=== PATIENT | male | born 1965 | race Caucasian/White ===

== ENCOUNTER → 2019-10-05 | Outpatient (CLI) | payer BC ==
[~2019-10-05] MED LIST: OMNIPAQUE 350 MG/ML, 100ML BOTTLE ONE
== END | disposition home or self-care (01) ==
LOC: CFH 14:38
PROVIDERS: ATTEND Nurse Practitioner Family
DX: K44.9 Diaphragmatic hernia without obstruction or gangrene (principal); J84.10 Pulmonary fibrosis, unspecified
CPT/HCPCS: 74177; Q9967

== ENCOUNTER 2020-07-19 14:23 | Outpatient (CLI) | payer BC | END 2020-07-19 23:59 | disposition home or self-care (01) | LOC: CFH 14:23 | PROVIDERS: ATTEND Internal Medicine | DX: Z12.2 Encounter for screening for malignant neoplasm of respiratory organs (principal); F17.211 Nicotine dependence, cigarettes, in remission; K44.9 Diaphragmatic hernia without obstruction or gangrene | CPT/HCPCS: 71271 ==